=== PATIENT | male | born 1965 | race Caucasian/White ===

== ENCOUNTER 2022-06-29 18:13 | Emergency (ER) | payer MEDICARE ==
[~2022-06-29] VITALS: Ht 185.4 cm; Wt 107.0 kg
--- NOTE | 2022-06-29 18:45 | NUR ---
SPONTANEOUS EPISTAXIS STARTED 2 HRS AGO. PT DENIES TRAUMA. PT AMBULATED TO BED WITH STEADY GAIT. AAOX4. BREATHING EVEN AND UNLABORED. AWAITING MD ORDERS.
--- NOTE | 2022-06-29 18:47 | NUR ---
DR. STOKES AT BEDSIDE.
--- NOTE | 2022-06-29 20:00 | NUR ---
Patient discharged to home in stable condition. Written and verbal after care instructions given. Patient verbalizes understanding of instruction. No Active bleeding noted
[2022-06-29 20:01] VITALS: BP 139/87
== END 2022-06-29 20:02 | disposition home or self-care (01) ==
LOC: ER 18:17
DX: R04.0 Epistaxis (principal)

== ENCOUNTER 2023-04-13 09:20 | Emergency (ER) | payer MEDICARE ==
[~2023-04-13] VITALS: Ht 185.4 cm; Wt 112.5 kg
[2023-04-13] MEDS ORDERED: IV NS 0.9% 1,000 ML BAG IV ONE (10:00)
[2023-04-13 10:25] LABS: BASOPHILS % (AUTO) 0.2 % (0.0-2.0); EOSINOPHILS # (AUTO) 0.1 K/uL (0.0-0.7); EOSINOPHILS % (AUTO) 0.7 % (0.0-6.0); HEMATOCRIT 48 % (39-51); HEMOGLOBIN 16.2 g/dL (13.5-17.5); LYMPHOCYTES # (AUTO) 0.6 K/uL (0.8-4.8); LYMPHOCYTES % (AUTO) 6.8 % (20.0-44.0); MEAN CORPUSCULAR HEMOGLOBIN 31 PG (26.0-33.0); MEAN CORPUSCULAR HGB CONC 34 g/dl (31.0-36.0); MEAN CORPUSCULAR VOLUME 91 fL (80-96); MONOCYTES # (AUTO) 0.9 K/uL (0.1-1.30); MONOCYTES % (AUTO) 10.1 % (2.0-12.0); NEUTROPHILS # (AUTO) 7.5 K/uL (1.8-8.9); NEUTROPHILS % (AUTO) 82.2 % (43.0-81.0); PLATELET COUNT (AUTO) 171 K/uL (150-450); RED BLOOD CELL COUNT(AUTO) 5.31 MIL/uL (4.5-6.0); RED CELL DISTRIBUTION WIDTH 14.9 % (11.5-15.0); WHITE BLOOD COUNT (AUTO) 9.1 K/uL (4.3-11.0)
[2023-04-13 10:27] LABS: CALCIUM, SERUM 9.6 mg/dL (8.5-10.1); CARBON DIOXIDE 31 mmol/L (21-32); CHLORIDE 102 mmol/L (98-107); CREATININE 1.5 mg/dL (0.6-1.3); GLUCOSE 101 mg/dL (74-106); POTASSIUM 4.5 mmol/L (3.5-5.1); SODIUM SERUM 136 mmol/L (136-145); UREA NITROGEN, BLOOD 20 mg/dL (7-18)
[2023-04-13] MEDS ORDERED: BENZ-13 PO (11:31)
[2023-04-13] MEDS ORDERED: ACET-2605 PO (11:31)
[2023-04-13 13:18] VITALS: BP 145/93; TEMP 98.2; O2SAT 96
== END 2023-04-13 12:25 | disposition home or self-care (01) ==
LOC: ER 09:20
DX: J02.8 Acute pharyngitis due to other specified organisms (principal); R05.9 Cough, unspecified; R09.81 Nasal congestion; Z20.822 Contact with and (suspected) exposure to COVID-19
CPT/HCPCS: 99285; 96360; 71045; 87426; 93005; 87804 ×2; 85025; 80048; 36415; 87420; 84484; J7030; C9803